=== PATIENT | male | born 1980 | race American Indian/Alaskan Native ===

== ENCOUNTER 2017-10-10 14:48 | Emergency (ER) | payer SELFPAY ==
[2017-10-10 14:55] VITALS: BP 151/88
[2017-10-10] MEDS ORDERED: NORCO 7.5/325 PO ONE (16:31)
--- NOTE | 2017-10-10 16:37 | Emergency Department Report ---
ED Extremity Problem HPI - General Chief complaint: Extremity Injury, Lower Stated complaint: DVT BLOOD CLOT Time Seen by Provider: 10/10/17 16:16 Source: patient Mode of arrival: Ambulatory Limitations: No Limitations - History of Present Illness Initial comments: Patient is a 36-year-old black male who suffered a blood clot to the left lower extremity several months ago is now on L Valladares who is complaining of 2-3 days of increased pain in the left lower extremity. Patient denies any chest pain shortness of breath fever chills or increased swelling to the left lower extremity. States that the pain is 8 out of 10 in severity and aching and throbbing. - Related Data Previous Rx's Medication Instructions Recorded Last Taken Type HYDROcodone/APAP 5-325 [[place] 1 each PO Q6HR PRN #15 tablet 10/10/17 Unknown Rx 5/325] Allergies Allergy/AdvReac Type Severity Reaction Status Date / Time No Known Allergies Allergy Unverified 10/10/17 14:50 ED Review of Systems ROS: Stated complaint: DVT BLOOD CLOT Other details as noted in HPI Comment: All other systems reviewed and negative ED Past Medical Hx - Past Medical History Previous Medical History?: Yes Hx Hypertension: Yes Hx Deep Vein Thrombosis: Yes Hx HIV: Yes - Surgical History Past Surgical History?: Yes Additional Surgical History: septaplasty - Social History Smoking Status: Never Smoker Substance Use Type: None - Medications Home Medications: Home Medications Medication Instructions Recorded Confirmed Last Taken Type HYDROcodone/APAP 5-325 [[place] 1 each PO Q6HR PRN #15 tablet 10/10/17 Unknown Rx 5/325] ED Physical Exam - General Limitations: No Limitations General appearance: alert, in no apparent distress - Head Head exam: Present: atraumatic, normocephalic - Eye Eye exam: Present: normal appearance - ENT ENT exam: Present: mucous membranes moist - Neck Neck exam: Present: normal inspection - Respiratory Respiratory exam: Present: normal lung sounds bilaterally. Absent: respiratory distress, wheezes, rales, rhonchi - Cardiovascular Cardiovascular Exam: Present: regular rate, normal rhythm. Absent: systolic murmur, diastolic murmur, rubs, gallop - GI/Abdominal GI/Abdominal exam: Present: soft, normal bowel sounds. Absent: distended, tenderness, guarding, rebound - Rectal Rectal exam: Present: deferred - Extremities Exam Extremities exam: Present: normal inspection, full ROM, tenderness (lle). Absent: joint swelling, calf tenderness - Back Exam Back exam: Present: normal inspection - Neurological Exam Neurological exam: Present: alert, oriented X3 - Psychiatric Psychiatric exam: Present: normal affect, normal mood - Skin Skin exam: Present: warm, dry, intact, normal color. Absent: rash ED Course Vital Signs 10/10/17 14:50 Temperature 98.2 F Pulse Rate 98 H Respiratory 18 Rate Blood Pressure 151/88 O2 Sat by Pulse 98 Oximetry ED Medical Decision Making - Radiology Data interpreted by me: BRIDGER ROJAS Male : 1980 MedRec# [id number] 10/10/17 16:07 - [facility]. [facility]: [id number] : 1980 Patient Age: 36 BLE VENOUS DUPLEX COMPLETED. VAS LAB PRELIMINARY REPORT; NON-OCCL (SEMI-ACUTE) NOTED IN LLE. SFV (YA) AND POP V. NO OTHER EVIDENCE OF DVT/SVT NOTED IN VESSELS/SEGMENTS NOTED AT THIS TIME. PHYSICIANS REPORT TO FOLLOW...(RSK) Initialized on 10/10/17 16:07 - END OF NOTE - Medical Decision Making Patient be given MS for pain control. Patient's mental L Aquinas in his clot may be dissolving result in some increased blood flow through the previously occluded area. Critical care attestation.: If time is entered above; I have spent that time in minutes in the direct care of this critically ill patient, excluding procedure time. ED Disposition Clinical Impression: DVT (deep venous thrombosis) Qualifiers: DVT location: lower extremity Affected thrombotic vein of extremity: unspecified vein of extremity Chronicity: chronic Laterality: left Qualified Code(s): I82.502 - Chronic embolism and thrombosis of unspecified deep veins of left lower extremity Disposition: DC-01 TO HOME OR SELFCARE Is pt being admited?: No Does the pt Need Aspirin: No Condition: Stable Referrals: [facility] [Outside] - 3-5 Days
--- NOTE | 2017-10-13 14:49 | Vascular Lab Report ---
LOWER EXTREMITY VENOUS DUPLEX: REASON FOR EXAM: Pain and swelling of the lower extremities, hx of left leg DVT. COMMENTS ON THE RIGHT: All veins visualized are freely compressible without evidence of internal echogenicity. Flow is spontaneous and phasic throughout. COMMENTS ON THE LEFT: Indeterminate age, partially occluding thrombus is seen in the superficial femoral vein and popliteal vein. The remaining veins visualized are freely compressible without evidence of internal echogenicity. Spontaneous and phasic flow is present proximally. IMPRESSION: Indeterminate age, partially occluding thrombus is seen in the left superficial femoral and popliteal veins. No evidence of acute DVT in the right lower extremity.
== END 2017-10-10 16:46 | disposition home or self-care (01) ==
LOC: ED 14:48
DX: I82.502 Chronic embolism and thrombosis of unspecified deep veins of left lower extremity (principal); I10 Essential (primary) hypertension
CPT/HCPCS: 93970; 99283